=== PATIENT | female | born 1945 | race Caucasian/White ===

== ENCOUNTER → 2018-08-08 10:35 | Outpatient (CLI) | payer MEDICARE, OTHER, SELFPAY ==
--- NOTE | 2018-08-08 10:55 | DI.RAD.S_ITS ---
PROCEDURE: XR FOOT RT MIN 3V INDICATIONS: maximal tenderness distal 5th MT TECHNIQUE: 3 views of the foot were acquired. COMPARISON: None. FINDINGS: Bones: No fractures or dislocations. 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 joints which could obscure visualization of a nondisplaced fracture. No suspicious bony lesions. Soft tissues: No tibiotalar joint effusion. Achilles tendon appears normal. IMPRESSION: No acute disease. Degenerative osteophytic changes are present at the MTP joints and the interphalangeal joints but no erosive arthritis or evidence of osteomyelitis is found. Depending on the clinical status followup by a delayed plain films may be warranted if a hidden fracture is clinically suspected. Dictated by: Chandler Esquivel M.D. on 08/08/2018 at 11:01 Approved by: Chandler Esquivel M.D. on 08/08/2018 at 11:12
== END ==
PROVIDERS: Family Provider Family Medicine; PCP Family Medicine; Visit Provider Physician Assistant
DX: M79.671 Pain in right foot (principal); M19.071 Primary osteoarthritis, right ankle and foot
CPT/HCPCS: 73630

== ENCOUNTER → 2019-11-22 10:19 | Outpatient (CLI) | payer MEDICARE, OTHER, SELFPAY ==
--- NOTE | 2019-11-22 10:22 | DI.RAD.S_ITS ---
PROCEDURE: XR CHEST 2V INDICATIONS: ongoing cough, atrial flutter TECHNIQUE: 2 views of the chest were acquired. COMPARISON: None. FINDINGS: Surgical changes and devices: Upper abdominal postoperative clips are seen. Lungs and pleura: Lungs are clear, yet hyperexpanded. No pleural effusions or pneumothorax. Mediastinum: The cardiac contours are within normal limits. The aorta demonstrates calcification and tortuosity. Bones and chest wall: Age-appropriate bony degenerative changes are seen. Mild dextroconvex scoliotic curvature is seen. No suspicious bony abnormalities. Soft tissues appear unremarkable. IMPRESSION: Hyperexpanded lungs, without an acute cardiopulmonary process identified. Postoperative and degenerative changes are seen. Dictated by: Myron Singh M.D. on 11/22/2019 at 9:47 Approved by: Myron Singh M.D. on 11/22/2019 at 9:48
[2019-11-22 12:01] LABS: Hematocrit 33.7 % (36-46); Hemoglobin 11.6 g/dL (12.0-16.0); Mean Corpuscular HGB Conc 34.5 % (30-36); Mean Corpuscular Hemoglobin 31.8 PG (26-34); Mean Corpuscular Volume 92.1 fL (80-100); Platelet Count 288 X10^3/uL (150-400); Red Blood Cell Count 3.66 X10^6/uL (4.0-5.2); Red Cell Distribution Width 13.7 % (11.6-14.8); White Blood Cell Count 5.5 X10^3/uL (4.5-11.0)
[2019-11-22 12:51] LABS: BUN Creatinine Ratio 12.5 (6-22); Blood Urea Nitrogen 10 mg/dL (7-17); Calcium 9.6 mg/dL (8.4-10.2); Carbon Dioxide 28 mmol/L (22-32); Chloride 94 mmol/L (98-107); Estimated Glomerular Filt Rate > 60.0 mL/min (>60); Glucose 90 mg/dL (80-110); HEMOLYSIS < 15 (0-50); Potassium 4.6 mmol/L (3.4-5.1); Sodium 132 mmol/L (137-145)
== END ==
PROVIDERS: Nurse Practitioner Family; PCP Family Medicine; Visit Provider Family Medicine
DX: R05 Cough (principal); I48.92 Unspecified atrial flutter
CPT/HCPCS: 36415; 71046; 80048; 85027

== ENCOUNTER → 2019-12-09 15:48 | Outpatient (CLI) | payer MEDICARE, OTHER, SELFPAY ==
--- NOTE | 2019-12-09 15:51 | DI.ECHO.S_ITS ---
[facility] +---------+ [facility] +---------+ : : [address] : [address] : : : : [id number] : : : : Phone: [phone]+ Echocardiogram Report + + :Name: ANAND MARTIN Study Date: 12/09/2019 Height: 67 in : :[facility] Weight: 162 lb : : Gender: Female BSA: 1.8 m2 : :: 1945 Age: 74 yrs BP: 126/82 mmHg: :Reason For Study: Atrial flutter : : Performed By: Jb Rojas : :Referring: LAVERNE CONRAD : + + Interpretation Summary The ejection fraction is estimated to be 60-65%. There is mild aortic regurgitation. The left atrium is moderately dilated. Procedure: A two-dimensional transthoracic echocardiogram with color flow and Doppler was performed. The study quality was technically adequate. There is no prior echocardiogram noted for this patient. The patient was in normal sinus rhythm during the exam. Left Ventricle: The left ventricle is normal in size. There is normal left ventricular wall thickness. Left ventricular systolic function is normal. The ejection fraction is estimated to be 60-65%. Left ventricular wall motion is normal. Right Ventricle: The right ventricle is normal in size and function. Atria: The left atrium is moderately dilated. Right atrial size is normal. The interatrial septum is intact with no evidence for an atrial septal defect. Mitral Valve: The mitral valve is normal in structure and function. There is trace mitral regurgitation. Aortic Valve: There is mild aortic valve sclerosis. The aortic valve is trileaflet. The aortic valve opens well. There is mild aortic regurgitation. Tricuspid Valve: The tricuspid valve is normal in structure and function. No tricuspid regurgitation. Pulmonic Valve: The pulmonic valve is not well visualized. There is trace pulmonic regurgitation. Great Vessels: The aortic root is normal size. The dimensions of the ascending aorta are normal. The pulmonary artery is normal size. The IVC is of normal diameter and collapses greater than 50% with a sniff. This suggests a low right atrial pressure of 3 mm Hg. Pericardium/ Pleura There is no pericardial effusion. There is no pleural effusion. MMode/2D Measurements & Calculations LVIDd: 3.9 cm LVOT diam: 1.9 cm LVIDs: 2.4 cm Ao root diam: 3.0 cm FS: 38.5 % EPSS: 0.50 cm IVSd: 1.0 cm LVPWd: 0.91 cm LV dotson. diameter/BSA (cm/m^2): 2.1 LV sys. diameter/BSA (cm/m^2): 1.3 LA A2 area: 23.7 cm2 RA long axis: 4.9 cm LA A4 area: 20.5 cm2 RA area: 13.5 cm2 LA length (vol): 4.9 cm RA vol: 31.4 ml LA vol: 83.9 ml RA : 17.0 ml/m2 LA vol index: 45.4 ml/m2 TAPSE: 2.4 cm Doppler Measurements & Calculations Ao V2 max: 96.9 cm/sec LVOT Max Alex: 84.5 cm/sec Ao V2 mean: 65.8 cm/sec LV V1 max P.9 mmHg Ao max P.8 mmHg LV V1 VTI: 21.0 cm Ao mean P.0 mmHg ROSY(I,D): 2.7 cm2 Ao V2 VTI: 21.2 cm ROSY(V,D): 2.3 cm2 sev ratio: 0.99 ROSY indexed to BSA (cm^2/m^2): 1.4 AI P1/2t: 529.0 msec AI dec slope: 246.4 cm/sec2 MV E max alex: 68.7 cm/sec SV(LVOT): 56.6 ml MV A max alex: 79.2 cm/sec MV E/A: 0.87 Med Peak E' Alex: 6.0 cm/sec E/E' med: 11.5 Lat Peak E' Alex: 5.9 cm/sec E/E' lat: 11.7 E/e' average: 11.6 MV dec time: 0.20 sec Reading Physician:09:00 AM
== END ==
PROVIDERS: PCP Family Medicine; Visit Provider Nurse Practitioner Family
DX: I35.1 Nonrheumatic aortic (valve) insufficiency (principal); I48.92 Unspecified atrial flutter
CPT/HCPCS: 93306